=== PATIENT | female | born 1970 | race Caucasian/White ===

== ENCOUNTER 2019-01-05 17:11 | Emergency (ER) | payer OTHER ==
[~2019-01-05] VITALS: Ht 165.1 cm; Wt 85.7 kg
[2019-01-05 17:23] VITALS: BP 134/95
--- NOTE | 2019-01-05 17:34 | NUR ---
PT TO LOBBY VIA WHEELCHAIR, VSS, EKG SHOWN TO DR ALMEIDA.
--- NOTE | 2019-01-05 17:55 | NUR ---
PT TO ER BED 4
--- NOTE | 2019-01-05 18:00 | NUR ---
48F BIB FAMILY C/O GENERALIZED WEAKNESS, NAUSEA, CHEST PAIN RADIATING TO LEFT ARM AND NECK, RT HAND PAIN W/ NUMBNESS X 1D. STARTED AFTER PT GOT OUT OF SHOWER THIS AM. +NAUSEA, -VOMITING.-FEVER. +DIAPHORESIS. C/O CHEST PAIN RADIATING TO LEFT ARM/NECK RATED 8/10. STATES DIARRHEA X2 TODAY. C/O NUMBNESS IN RIGHT FINGERTIPS. ABLE TO GRASP OBJECTION. STATES NO SENSATION IN FINGERTIPS. LUNGS CTAB, REGULAR RESP RATE AND EFFORT. RRR, NO MURMURS. PMH COLOLECTOMY SURGERY, BLADDER REPAIR, HYSTERECTOMY IN 09/2018; DEPRESSION MED: MORPHINE, IBUPROFEN, ZOLOFT
--- NOTE | 2019-01-05 18:07 | NUR ---
DR ARNETT EVALUATING PT
--- NOTE | 2019-01-05 18:10 | NUR ---
Dr. Clarke evaluating patient at bedside.
[2019-01-05] MEDS ORDERED: NITROGLYCERIN 2% 1 GM PKT TP ONE (18:20)
[2019-01-05] MEDS ORDERED: ASPIRIN 81 MG TAB.CHEW PO ONE (18:20)
[2019-01-05] MEDS ORDERED: NACL 0.9% 1,000 ML IV ONE (18:20)
--- NOTE | 2019-01-05 18:23 | NUR ---
ENROLLED AGENT AT BEDSIDE
--- NOTE | 2019-01-05 18:27 | NUR ---
lawn technician at bedside.
[2019-01-05 18:38] LABS: BASOPHILS % (AUTO) 0.5 % (0.0-2.0); EOSINOPHILS # (AUTO) 0.2 K/uL (0-0.4); HEMATOCRIT 40.7 % (36-48); HEMOGLOBIN 13.1 g/dL (12.0-16.0); LYMPHOCYTES # (AUTO) 2.6 K/uL (2.5-16.5); LYMPHOCYTES % (AUTO) 39.5 % (20.5-51.1); MEAN CORPUSCULAR HEMOGLOBIN 28 pg (27-31); MEAN CORPUSCULAR HGB CONC 32 g/dL (33-37); MEAN CORPUSCULAR VOLUME 85.6 fL (80-94); MONOCYTES # (AUTO) 0.5 K/uL (0.8-1.0); MONOCYTES % (AUTO) 6.9 % (1.7-9.3); NEUTROPHILS # (AUTO) 3.3 K/uL (1.8-7.7); NEUTROPHILS % (AUTO) 50.1 % (42.2-75.2); PLATELET COUNT (AUTO) 310 K/uL (140-450); RED BLOOD CELL COUNT(AUTO) 4.75 MIL/uL (4.20-5.40); RED CELL DISTRIBUTION WIDTH 13.5 % (11.6-13.7); WHITE BLOOD COUNT (AUTO) 6.5 K/uL (4.8-10.8)
[2019-01-05 18:43] LABS: ANION GAP 11.8 (8-16); CARBON DIOXIDE 29.1 mmol/L (21-32); CREATININE 0.8 mg/dL (0.6-1.3); POTASSIUM 3.9 mmol/L (3.5-5.1)
[2019-01-05 18:49] LABS: ALBUMIN 3.9 g/dL (3.4-5.0); TOTAL BILIRUBIN 0.2 mg/dL (0.0-1.0)
[2019-01-05 18:54] LABS: PROTHROMBIN TIME 9.7 secs (10.8-13.4)
[2019-01-05] MEDS ORDERED: ONDANSETRON 4 MG/2 ML VIAL IVP ONE (19:55)
[2019-01-05] MEDS ORDERED: MORPHINE SULFATE 4 MG/ML SYR IVP ONE (19:55)
[2019-01-05] MEDS ORDERED: diphenhydrAMINE 50 MG/ML VIAL IVP ONE (20:15)
--- NOTE | 2019-01-05 22:00 | NUR ---
PT C/O HEADACHE AND LEFT SHOULDER PAIN. MADE ER DR REYNAGA
[2019-01-06] MEDS ORDERED: MORPHINE SULFATE 2 MG/ML SYR IVP ONE (00:30)
--- NOTE | 2019-01-06 00:30 | NUR ---
DR SEXTON AT BEDSIDE EXPLAINING DX AND REASON FOR TRANSFER OF CARE TO [facility].
--- NOTE | 2019-01-06 00:44 | NUR ---
SPOKE TO ZIYAD CARMONA AT [facility]
--- NOTE | 2019-01-06 00:45 | NUR ---
[facility] AT BEDSIDE.
[2019-01-06 00:50] VITALS: BP 130/68
--- NOTE | 2019-01-06 00:50 | NUR ---
PT TRANSFERED TO [facility] BY [facility]. PT STATES PAIN REDUCED AFTER MORPHINE ADMINISTRATION. NO SOB/DYSPNEA. PT STATES CP IS REDUCING. ALERT TO NAME, PLACE, TIME AND EVENT. STABLE TO TRANSFER.
== END 2019-01-06 00:50 | disposition short-term general hospital (02) ==
LOC: MED 17:11
DX: R07.9 Chest pain, unspecified (principal); R11.0 Nausea; R06.02 Shortness of breath; F32.9 Major depressive disorder, single episode, unspecified; Z90.49 Acquired absence of other specified parts of digestive tract; Z88.2 Allergy status to sulfonamides; Z88.1 Allergy status to other antibiotic agents; Z88.8 Allergy status to other drugs, medicaments and biological substances; Z90.710 Acquired absence of both cervix and uterus
CPT/HCPCS: 36415; 71045; 80053; 84484; 85025; 85610; 85730; 96374; 96375; 96376; 99284; J1200; J2270; J2405; J7030; Q0092

== ENCOUNTER 2019-03-11 17:25 | Emergency (ER) | payer OTHER ==
[~2019-03-11] VITALS: Ht 165.1 cm; Wt 87.5 kg
[2019-03-11 17:33] VITALS: BP 145/92
[2019-03-11 20:32] VITALS: BP 145/92
== END 2019-03-11 20:32 | disposition home or self-care (01) ==
LOC: MED 17:25
DX: L03.113 Cellulitis of right upper limb (principal); L03.114 Cellulitis of left upper limb; L03.115 Cellulitis of right lower limb; L03.116 Cellulitis of left lower limb; R03.0 Elevated blood-pressure reading, without diagnosis of hypertension; R11.2 Nausea with vomiting, unspecified; Z90.710 Acquired absence of both cervix and uterus; Z98.890 Other specified postprocedural states; Z88.1 Allergy status to other antibiotic agents; Z88.2 Allergy status to sulfonamides; Z88.8 Allergy status to other drugs, medicaments and biological substances
CPT/HCPCS: 99283

== ENCOUNTER 2020-10-17 19:56 | Emergency (ER) | payer OTHER ==
[~2020-10-17] VITALS: Ht 165.1 cm; Wt 86.2 kg
[2020-10-17 20:03] VITALS: BP 156/95
--- NOTE | 2020-10-17 20:15 | NUR ---
PT TAKEN TO BED 7
--- NOTE | 2020-10-17 20:16 | NUR ---
50 Y/O FEMALE CAME TO THE ED C/O CHEST PAIN, CHIRINOS, AND ABDOMINAL PAIN. PT STATES THAT SHE HAS "9/10 CHEST PAIN THAT RADIATES TO ABDOMEN, AND 9/10 SHARP HEADACHE. PT IS A&OX4, GCS 15. PT ALSO STATES THAT SHE HAS NO APPETIE FOR A WEEK, AND DIARRHEA X6DAYS. PMH: COLITIS, DIVERTICULITIS, H. PYLORI, SCOLIOSIS ALLERGIES: PROMETHAZINE, COMPAZINE, REGLAN- TARDIVE DYSKINESIA BACTRIM- ANAPHYLACTIC REACTION
--- NOTE | 2020-10-17 20:23 | NUR ---
Dr. Joyner examining patient.
[2020-10-17] MEDS ORDERED: LIDOCAINE MPF 1% 10 MG/ML VIAL INJ ONE (20:45)
--- NOTE | 2020-10-17 20:51 | NUR ---
ekg performed at bedside. ekg reads sinus rhythm @ 72
[2020-10-17] MEDS ORDERED: ONDANSETRON 4 MG ODT PO ONE (21:20)
[2020-10-17] MEDS ORDERED: MORPHINE SULFATE 4 MG/ML SYR IM ONE (22:15)
--- NOTE | 2020-10-17 22:15 | NUR ---
X-Ray at bedside.
[2020-10-17 22:42] LABS: BASOPHILS % (AUTO) 0.3 % (0.0-2.0); EOSINOPHILS # (AUTO) 0.1 K/uL (0-0.4); HEMATOCRIT 41.1 % (36-48); HEMOGLOBIN 13.5 g/dL (12.0-16.0); LYMPHOCYTES # (AUTO) 1.2 K/uL (2.5-16.5); LYMPHOCYTES % (AUTO) 18.5 % (20.5-51.1); MEAN CORPUSCULAR HEMOGLOBIN 29 pg (27-31); MEAN CORPUSCULAR HGB CONC 33 g/dL (33-37); MEAN CORPUSCULAR VOLUME 87.7 fL (80-94); MONOCYTES # (AUTO) 0.4 K/uL (0.8-1.0); MONOCYTES % (AUTO) 6.5 % (1.7-9.3); NEUTROPHILS # (AUTO) 4.8 K/uL (1.8-7.7); NEUTROPHILS % (AUTO) 73.7 % (42.2-75.2); PLATELET COUNT (AUTO) 271 K/uL (140-450); RED BLOOD CELL COUNT(AUTO) 4.68 MIL/uL (4.20-5.40); RED CELL DISTRIBUTION WIDTH 13.2 % (11.6-13.7); WHITE BLOOD COUNT (AUTO) 6.5 K/uL (4.8-10.8)
[2020-10-17 23:02] LABS: CARBON DIOXIDE 30.1 mmol/L (21-32); CREATININE 0.8 mg/dL (0.6-1.3); POTASSIUM 4.1 mmol/L (3.5-5.1); TOTAL BILIRUBIN 0.4 mg/dL (0.0-1.0)
[2020-10-17 23:35] VITALS: BP 156/95
--- NOTE | 2020-10-17 23:35 | NUR ---
Patient discharged with v/s stable. Written and verbal after care instructions given and explained. Patient verbalized understanding. Ambulatory with steady gait. All questions addressed prior to discharge. Advised to follow up with PMD.
--- NOTE | 2020-10-17 23:35 | NUR ---
Note undone in EDM - 10/18/20 at 0008 by [id number] Patient discharged with v/s stable. Written and verbal after care instructions given and explained. Patient alert, oriented and verbalized understanding of instructions. [g ED.DCMODE] with [g ED.D/CMODE]. All questions addressed prior to discharge. ID band removed. Patient advised to follow up with PMD. Rx of [] given. Patient educated on indication of medication including possible reaction and side effects. Opportunity to ask questions provided and answered.
== END 2020-10-17 23:35 | disposition home or self-care (01) ==
LOC: MED 19:56
DX: R51.9 Headache, unspecified (principal); M54.2 Cervicalgia; R07.9 Chest pain, unspecified; R10.9 Unspecified abdominal pain; R11.0 Nausea
CPT/HCPCS: 20552; 36415; 71045; 80053; 84484; 85025; 93005; 96372; 99285; J2001; J2270; Q0162

== ENCOUNTER 2022-02-10 15:27 | Emergency (ER) | payer OTHER ==
[~2022-02-10] VITALS: Ht 165.1 cm; Wt 88.5 kg
[2022-02-10 15:43] VITALS: BP 138/85
--- NOTE | 2022-02-10 16:00 | NUR ---
C/O 8/10 MID LOWER ABDOMINAL PAIN RADIATING TO LEFT GROIN & LOWER BACK X YESTERDAY. PMH: KIDNEY STONE
[2022-02-10 16:34] LABS: BASOPHILS % (AUTO) 0.3 % (0.0-2.0); EOSINOPHILS # (AUTO) 0.1 K/uL (0-0.4); EOSINOPHILS % (AUTO) 2.7 % (0.0-4.0); HEMATOCRIT 38.7 % (36-48); HEMOGLOBIN 12.7 g/dL (12.0-16.0); LYMPHOCYTES # (AUTO) 2.1 K/uL (2.5-16.5); LYMPHOCYTES % (AUTO) 41.1 % (20.5-51.1); MEAN CORPUSCULAR HEMOGLOBIN 29 pg (27-31); MEAN CORPUSCULAR HGB CONC 33 g/dL (33-37); MEAN CORPUSCULAR VOLUME 87.5 fL (80-94); MONOCYTES # (AUTO) 0.4 K/uL (0.8-1.0); MONOCYTES % (AUTO) 7.3 % (1.7-9.3); NEUTROPHILS # (AUTO) 2.5 K/uL (1.8-7.7); NEUTROPHILS % (AUTO) 48.6 % (42.2-75.2); PLATELET COUNT (AUTO) 258 K/uL (140-450); RED BLOOD CELL COUNT(AUTO) 4.42 MIL/uL (4.20-5.40); RED CELL DISTRIBUTION WIDTH 13.1 % (11.6-13.7); WHITE BLOOD COUNT (AUTO) 5.2 K/uL (4.8-10.8)
--- NOTE | 2022-02-10 16:45 | NUR ---
Patient being evaluated by DR WHEAT at TRIAGE ROOM.
[2022-02-10 16:52] LABS: ALBUMIN 3.6 g/dL (3.4-5.0); ANION GAP 12.1 (8-16); CARBON DIOXIDE 30.9 mmol/L (21-32); CREATININE 0.8 mg/dL (0.6-1.3); TOTAL BILIRUBIN 0.2 mg/dL (0.0-1.0)
[2022-02-10] MEDS ORDERED: IBUP-1842 PO (17:35)
[2022-02-10] MEDS ORDERED: PHEN-1593 PO (17:35)
[2022-02-10] MEDS ORDERED: CEPH500C16 PO (17:35)
[2022-02-10 17:54] LABS: APPEARANCE,URINE SL CLOUDY (CLEAR); BILIRUBIN,URINE NEGATIVE (NEGATIVE); BLOOD, URINE TRACE-I (NEGATIVE); COLOR,URINE YELLOW (YELLOW); LEUKOCYTE ESTERASE ,URINE TRACE (NEGATIVE); NITRITE, URINE NEGATIVE (NEGATIVE); UGLUCOSE NEGATIVE (NEGATIVE)
[2022-02-10 18:15] VITALS: BP 133/72
--- NOTE | 2022-02-10 18:15 | NUR ---
Patient discharged with v/s stable. Written and verbal after care instructions given and explained. Patient alert, oriented and verbalized understanding of instructions. Ambulatory with steady gait. All questions addressed prior to discharge. ID band removed. Patient advised to follow up with PMD. Rx of KEFLEX,PYRIDIM,IBU given. Patient educated on indication of medication including possible reaction and side effects. Opportunity to ask questions provided and answered.
[2022-02-10 19:10] LABS: RBC,URINE NONE SEEN /HPF (0-5); TRICHOMONAS,URINE None Seen /HPF (None Seen); WBC,URINE NONE SEEN /HPF (0-5); YEAST,URINE None Seen /HPF (None Seen)
== END 2022-02-10 18:15 | disposition home or self-care (01) ==
LOC: MED 15:27
DX: N30.90 Cystitis, unspecified without hematuria (principal); Z98.890 Other specified postprocedural states; Z79.899 Other long term (current) drug therapy; Z79.1 Long term (current) use of non-steroidal anti-inflammatories (NSAID); Z79.2 Long term (current) use of antibiotics; Z88.8 Allergy status to other drugs, medicaments and biological substances; Z88.2 Allergy status to sulfonamides; Z88.1 Allergy status to other antibiotic agents
CPT/HCPCS: 36415; 80053; 81001; 83690; 85025; 87086; 99283

== ENCOUNTER 2023-02-20 17:22 | Emergency (ER) | payer OTHER ==
[~2023-02-20] VITALS: Ht 165.1 cm; Wt 81.2 kg
[~2023-02-20 17:22] MED LIST: CEPH500C16 PO; IBUP-1842 PO; PHEN-1593 PO
[2023-02-20 17:49] VITALS: BP 136/77; PULSE 62; RESP 20; TEMP 97.4; O2SAT 99
[2023-02-20 18:44] LABS: BASOPHILS % (AUTO) 0.3 % (0.0-2.0); EOSINOPHILS # (AUTO) 0.1 K/uL (0-0.4); EOSINOPHILS % (AUTO) 1.2 % (0.0-4.0); HEMATOCRIT 41.3 % (36-48); HEMOGLOBIN 13.6 g/dL (12.0-16.0); LYMPHOCYTES # (AUTO) 1.9 K/uL (2.5-16.5); LYMPHOCYTES % (AUTO) 27.4 % (20.5-51.1); MEAN CORPUSCULAR HEMOGLOBIN 29 pg (27-31); MEAN CORPUSCULAR HGB CONC 33 g/dL (33-37); MEAN CORPUSCULAR VOLUME 88.7 fL (80-94); MONOCYTES # (AUTO) 0.5 K/uL (0.8-1.0); MONOCYTES % (AUTO) 6.7 % (1.7-9.3); NEUTROPHILS # (AUTO) 4.5 K/uL (1.8-7.7); NEUTROPHILS % (AUTO) 64.4 % (42.2-75.2); PLATELET COUNT (AUTO) 264 K/uL (140-450); RED BLOOD CELL COUNT(AUTO) 4.65 MIL/uL (4.20-5.40); RED CELL DISTRIBUTION WIDTH 13.1 % (11.6-13.7)
[2023-02-20] MEDS ORDERED: KETOROLAC 30 MG/ML VIAL IVP ONE (18:55)
[2023-02-20] MEDS ORDERED: NACL 0.9% 1,000 ML IV ONE (18:55)
[2023-02-20] MEDS ORDERED: ONDANSETRON 4 MG/2 ML VIAL IVP ONE (18:55)
[2023-02-20 18:59] LABS: ALBUMIN 4.1 g/dL (3.4-5.0); ANION GAP 12.8 (8-16); CALCIUM 9.5 mg/dL (8.5-10.1); CARBON DIOXIDE 28.4 mmol/L (21-32); CREATININE 0.9 mg/dL (0.6-1.3); POTASSIUM 4.2 mmol/L (3.5-5.1); TOTAL BILIRUBIN 0.3 mg/dL (0.0-1.0); TOTAL PROTEIN, SERUM 8.5 g/dL (6.4-8.2)
[2023-02-20 19:20] LABS: APPEARANCE,URINE CLEAR (CLEAR); BILIRUBIN,URINE NEGATIVE (NEGATIVE); BLOOD, URINE NEGATIVE (NEGATIVE); COLOR,URINE YELLOW (YELLOW); LEUKOCYTE ESTERASE ,URINE NEGATIVE (NEGATIVE); NITRITE, URINE NEGATIVE (NEGATIVE); PROTEIN,URINE NEGATIVE (NEGATIVE); UGLUCOSE NEGATIVE (NEGATIVE); UROBILINOGEN,URINE 0.2 EU/dL (0.2 - 1)
[2023-02-20] MEDS ORDERED: KETOROLAC 30 MG/ML VIAL IM ONE (19:45)
[2023-02-20] MEDS ORDERED: ONDANSETRON 4 MG/2 ML VIAL IM ONE (19:45)
[2023-02-20] MEDS ORDERED: MORPHINE SULFATE 4 MG/ML SYR IVP ONE (21:10)
[2023-02-20 22:12] VITALS: BP 130/74; PULSE 68; RESP 20; TEMP 97.4; O2SAT 99
== END 2023-02-20 22:12 | disposition home or self-care (01) ==
LOC: MED 17:22
DX: R10.13 Epigastric pain (principal); R10.12 Left upper quadrant pain; R11.0 Nausea; E11.9 Type 2 diabetes mellitus without complications; I10 Essential (primary) hypertension; Z88.2 Allergy status to sulfonamides; Z88.8 Allergy status to other drugs, medicaments and biological substances; Z79.899 Other long term (current) drug therapy; Z79.4 Long term (current) use of insulin; Z90.49 Acquired absence of other specified parts of digestive tract; Z98.890 Other specified postprocedural states
CPT/HCPCS: 36415; 74176; 80053; 81003; 81025; 83690; 84484; 85025; 93005; 96361; 96372; 96374; 99285; J1885; J2270; J2405; J7030